=== PATIENT | female | born 1990 | race African-American/Black ===

== ENCOUNTER 2016-07-15 18:44 | Emergency (ER) | payer BC ==
[~2016-07-15] VITALS: Ht 165.1 cm; Wt 100.0 kg
[~2016-07-15 18:44] MED LIST: AMOXICILLIN500 MG PO; AZITHROMYCIN500 MG PO; BACTRIM DS1 TAB PO; BACTROBAN2 % EX; BACTROBAN2 % NAS; CEPHALEXIN500 MG OR; CIPRO500 MG PO; DIFLUCAN150 MG PO; DOXYCYCL HYC100 MG PO; ERYTHROMYCIN250 MG PO; FIORICET PO; FLAGYL500 MG PO; IBUPROFEN600 MG PO; IRON 100 PLUS PO; KETOROLAC10 MG PO; LASIX 20 MG20 MG/TAB PO; LOPRESSOR 550 MG/TAB PO; MACROBID100 MG PO; MOTRIN800 MG PO; NAPROSYN500 MG PO; NO; NO HOME MEDS; NYSTAT/TRIA2 EX; ONDANSETRON4 MG PO; PRE-NATAL PO; PYRIDIUM200 MG PO; ROCEPHIN 2250 MG/VIA IM; TYLENOL 500MG TAB PO; ZITHROMAX500 MG OR
[2016-07-15 19:26] LABS: HEMATOCRIT 34.8 % (37.0-47.0); HEMOGLOBIN 10.8 g/dl (12.0-16.0); IMMATURE GRANULOCYTES 0.2 % (0.0-1.0); MEAN CORPUSCULAR HGB 22.4 pG CALC (26.0-32.0); NEUT# 2.29 thou/uL (2.00-7.15); RED BLOOD COUNT 4.83 mill/uL (4.20-5.60); RED CELL DISTRI WIDTH 17.1 % (11.5-15.5)
[2016-07-15 19:41] LABS: ALBUMIN 4.3 g/dL (3.2-5.0); ALKALINE PHOSPHATASE 79 u/l (38-126); ANION GAP 13 (6-22 (CALC)); BILIRUBIN, TOTAL 0.4 mg/dL (0.0-1.4); BUN 13 mg/dL (7-17); BUN/CREATININE RATIO 19 (12-20 (CALC)); CALCIUM 9.2 mg/dL (8.4-10.2); CARBON DIOXIDE 25 mmol/l (22-30); CHLORIDE 105 mmol/l (95-108); CREATININE 0.7 mg/dL (0.5-1.0); ETHYL ALCOHOL 0 mg/dl (0-30); GFR > 60 ML/MIN (>=60 (CALC)); GFR FOR AFR.AMER. > 60 ML/MIN (>=60 (CALC)); GLUCOSE 106 mg/dL (65-105); POTASSIUM 3.3 mmol/l (3.5-5.1); SGOT/AST 29 u/l (14-36); SGPT/ALT 30 u/l (9-52); SODIUM 139 mmol/l (137-146); TOTAL PROTEIN 8.9 g/dL (6.3-8.2)
[2016-07-15 19:51] LABS: MYOGLOBIN 19 ng/mL (0 - 62)
[2016-07-15 20:42] LABS: URINE BILIRUBIN - DIPSTICK NEGATIVE (NEGATIVE); URINE BLOOD DIPSTICK TRACE-INTACT (NEGATIVE); URINE CLARITY SLIGHT CLOUDY; URINE COLOR YELLOW; URINE GLUCOSE - DIPSTICK NEGATIVE (NEGATIVE); URINE KETONE NEGATIVE (NEGATIVE); URINE NITRITE - DIPSTICK NEGATIVE (Negative); URINE PROTEIN - DIPSTICK NEGATIVE (NEG-TRACE); URINE SPECIFIC GRAVITY >=1.030; URINE UROBILINOGEN - DIPSTICK 0.2 E.U./dL (0.2)
[2016-07-15 20:44] LABS: URINE LEUK ESTERASE SMALL (NEGATIVE)
[2016-07-15 20:45] LABS: BARBITURATES NEGATIVE (NEGATIVE); COCAINE NEGATIVE (NEGATIVE); METHADONE NEGATIVE (NEGATIVE); OXCYCODONE NEGATIVE (NEGATIVE); TETRAHYDROCANNABIONOL NEGATIVE (NEGATIVE); TRICYLIC ANTIDEPRESSANTS NEGATIVE (NEGATIVE)
[2016-07-15 20:51] LABS: URINE SQUAMOUS EPITHELIAL CELL MANY EPI/hpf (0-FEW)
[2016-07-15] MEDS ORDERED: CEPHALEXIN500 MG PO (21:43)
[2016-07-15 22:11] VITALS: BP 102/63
== END 2016-07-15 22:17 | disposition home or self-care (01) | DRG 101 ==
LOC: ED 18:44
PROVIDERS: Emergency Medicine
DX: G40.909 Epilepsy, unspecified, not intractable, without status epilepticus (principal); N39.0 Urinary tract infection, site not specified

== ENCOUNTER 2016-08-15 14:31 | Emergency (ER) | payer BC ==
[~2016-08-15] VITALS: Ht 165.1 cm; Wt 95.0 kg
[~2016-08-15 14:31] MED LIST changes: +CEPHALEXIN500 MG PO
[2016-08-15] MEDS ORDERED: MOTRIN800 MG PO (14:45)
[2016-08-15 15:55] VITALS: BP 116/68
== END 2016-08-15 15:55 | disposition home or self-care (01) | DRG 558 ==
LOC: ED 14:31
DX: M77.51 Other enthesopathy of right foot and ankle (principal); M25.572 Pain in left ankle and joints of left foot

== ENCOUNTER 2017-05-28 17:40 | Emergency (ER) | payer SELFPAY ==
[~2017-05-28] VITALS: Ht 165.1 cm; Wt 95.0 kg
[2017-05-28 18:47] LABS: URINE BILIRUBIN - DIPSTICK NEGATIVE (NEGATIVE); URINE BLOOD DIPSTICK SMALL (NEGATIVE); URINE COLOR YELLOW; URINE GLUCOSE - DIPSTICK NEGATIVE (NEGATIVE); URINE KETONE TRACE mg/dL (NEGATIVE); URINE LEUK ESTERASE NEGATIVE (NEGATIVE); URINE NITRITE - DIPSTICK NEGATIVE (Negative); URINE PROTEIN - DIPSTICK NEGATIVE (NEG-TRACE); URINE SPECIFIC GRAVITY 1.025; URINE UROBILINOGEN - DIPSTICK 0.2 E.U./dL (0.2)
[2017-05-28 18:52] LABS: URINE CLARITY CLEAR
[2017-05-28 18:59] LABS: URINE SQUAMOUS EPITHELIAL CELL FEW EPI/hpf (0-FEW)
[2017-05-28 20:12] VITALS: BP 127/75
== END 2017-05-28 20:25 | disposition home or self-care (01) | DRG 759 ==
LOC: ED 17:40
PROVIDERS: Family Medicine
DX: N76.0 Acute vaginitis (principal)

== ENCOUNTER 2017-05-29 20:26 | Emergency (ER) | payer SELFPAY ==
[~2017-05-29] VITALS: Ht 165.1 cm; Wt 95.0 kg
[2017-05-29 21:43] LABS: HEMATOCRIT 32.8 % (37.0-47.0); HEMOGLOBIN 10.1 g/dl (12.0-16.0); IMMATURE GRANULOCYTES 0.2 % (0.0-1.0); MEAN CORPUSCULAR HGB 23.7 pG CALC (26.0-32.0); MEAN CORPUSCULAR HGB CONC 30.8 g/L CALC (32.0-36.0); NEUT# 2.59 thou/uL (2.00-7.15); RED BLOOD COUNT 4.27 mill/uL (4.20-5.60); RED CELL DISTRI WIDTH 14.6 % (11.5-15.5)
[2017-05-29 21:44] LABS: MEAN CELL VOLUME 76.8 fL CALC (80.0-100.0)
[2017-05-29 21:49] LABS: URINE BILIRUBIN - DIPSTICK NEGATIVE (NEGATIVE); URINE BLOOD DIPSTICK NEGATIVE (NEGATIVE); URINE COLOR YELLOW; URINE GLUCOSE - DIPSTICK NEGATIVE (NEGATIVE); URINE KETONE NEGATIVE (NEGATIVE); URINE LEUK ESTERASE NEGATIVE (NEGATIVE); URINE NITRITE - DIPSTICK NEGATIVE (Negative); URINE PH 7.5 (4.5-8.0); URINE PROTEIN - DIPSTICK TRACE mg/dL (NEG-TRACE); URINE UROBILINOGEN - DIPSTICK 0.2 E.U./dL (0.2)
[2017-05-29 21:51] LABS: URINE CLARITY CLEAR
[2017-05-29 21:53] LABS: BARBITURATES NEGATIVE (NEGATIVE); COCAINE NEGATIVE (NEGATIVE); METHADONE NEGATIVE (NEGATIVE); OXCYCODONE NEGATIVE (NEGATIVE); TETRAHYDROCANNABIONOL NEGATIVE (NEGATIVE); TRICYLIC ANTIDEPRESSANTS NEGATIVE (NEGATIVE)
[2017-05-29 21:56] LABS: ALBUMIN 3.8 g/dL (3.2-5.0); ALKALINE PHOSPHATASE 78 u/l (38-126); ANION GAP 16 (6-22 (CALC)); BILIRUBIN, TOTAL 0.2 mg/dL (0.0-1.4); BUN 11 mg/dL (7-17); BUN/CREATININE RATIO 15 (12-20 (CALC)); CARBON DIOXIDE 27 mmol/l (22-30); CHLORIDE 104 mmol/l (95-108); CREATININE 0.7 mg/dL (0.5-1.0); GFR > 60 ML/MIN (>=60 (CALC)); GFR FOR AFR.AMER. > 60 ML/MIN (>=60 (CALC)); POTASSIUM 3.8 mmol/l (3.5-5.1); SGOT/AST 19 u/l (14-36); SGPT/ALT 29 u/l (9-52); SODIUM 143 mmol/l (137-146); TOTAL PROTEIN 7.7 g/dL (6.3-8.2)
[2017-05-29 23:19] VITALS: BP 122/64
== END 2017-05-29 23:18 | disposition home or self-care (01) | DRG 101 ==
LOC: ED 20:26
PROVIDERS: Emergency Medicine
DX: R56.9 Unspecified convulsions (principal); R51 Headache; Z91.14 Patient's other noncompliance with medication regimen; Y93.G3 Activity, cooking and baking; Y92.000 Kitchen of unspecified non-institutional (private) residence as the place of occurrence of the external cause

== ENCOUNTER 2017-06-04 23:02 | Emergency (ER) | payer SELFPAY ==
[~2017-06-04] VITALS: Ht 165.1 cm; Wt 100.0 kg
[2017-06-04 23:36] LABS: HEMATOCRIT 36.1 % (37.0-47.0); HEMOGLOBIN 11.2 g/dl (12.0-16.0); IMMATURE GRANULOCYTES 0.3 % (0.0-1.0); MEAN CORPUSCULAR HGB 23.6 pG CALC (26.0-32.0); NEUT# 3.04 thou/uL (2.00-7.15); RED BLOOD COUNT 4.75 mill/uL (4.20-5.60); RED CELL DISTRI WIDTH 14.4 % (11.5-15.5)
[2017-06-04 23:48] LABS: ALBUMIN 4.1 g/dL (3.2-5.0); ALKALINE PHOSPHATASE 88 u/l (38-126); ANION GAP 17 (6-22 (CALC)); BILIRUBIN, TOTAL 0.3 mg/dL (0.0-1.4); BUN 14 mg/dL (7-17); BUN/CREATININE RATIO 16 (12-20 (CALC)); CARBON DIOXIDE 24 mmol/l (22-30); CHLORIDE 105 mmol/l (95-108); CREATININE 0.9 mg/dL (0.5-1.0); GFR > 60 ML/MIN (>=60 (CALC)); GFR FOR AFR.AMER. > 60 ML/MIN (>=60 (CALC)); SGOT/AST 18 u/l (14-36); SGPT/ALT 28 u/l (9-52); SODIUM 142 mmol/l (137-146); TOTAL PROTEIN 8.4 g/dL (6.3-8.2)
[2017-06-05 00:50] LABS: URINE BILIRUBIN - DIPSTICK NEGATIVE (NEGATIVE); URINE BLOOD DIPSTICK TRACE-INTACT (NEGATIVE); URINE COLOR YELLOW; URINE GLUCOSE - DIPSTICK NEGATIVE (NEGATIVE); URINE KETONE NEGATIVE (NEGATIVE); URINE NITRITE - DIPSTICK NEGATIVE (Negative); URINE PROTEIN - DIPSTICK NEGATIVE (NEG-TRACE); URINE UROBILINOGEN - DIPSTICK 0.2 E.U./dL (0.2)
[2017-06-05 00:52] LABS: BARBITURATES NEGATIVE (NEGATIVE); COCAINE NEGATIVE (NEGATIVE); METHADONE NEGATIVE (NEGATIVE); OXCYCODONE NEGATIVE (NEGATIVE); TETRAHYDROCANNABIONOL NEGATIVE (NEGATIVE); TRICYLIC ANTIDEPRESSANTS NEGATIVE (NEGATIVE); URINE CLARITY HAZY; URINE LEUK ESTERASE SMALL (NEGATIVE)
[2017-06-05] MEDS ORDERED: AMOXICILLIN500 MG PO (00:57)
[2017-06-05 01:02] LABS: URINE BACTERIA FEW hpf; URINE EPITHELIAL CELLS FEW EPI/hpf (0-FEW); URINE RBC 0-2 RBC/hpf (0-5)
[2017-06-05 01:05] VITALS: BP 113/57
== END 2017-06-05 01:05 | disposition home or self-care (01) | DRG 101 ==
LOC: ED 23:02
PROVIDERS: Emergency Medicine
DX: G40.909 Epilepsy, unspecified, not intractable, without status epilepticus (principal); J45.909 Unspecified asthma, uncomplicated; N39.0 Urinary tract infection, site not specified
CPT/HCPCS: J1953

== ENCOUNTER 2017-06-12 20:50 | Emergency (ER) | payer OTHER ==
[~2017-06-12] VITALS: Ht 165.1 cm; Wt 100.0 kg
[2017-06-12] MEDS ORDERED: BRIVIACT25 MG PO (21:16)
[2017-06-12] MEDS ORDERED: AMITRIPTYLIN25 MG PO (21:16)
[2017-06-12 21:54] LABS: HEMATOCRIT 37.3 % (37.0-47.0); HEMOGLOBIN 11.8 g/dl (12.0-16.0); IMMATURE GRANULOCYTES 0.1 % (0.0-1.0); MEAN CELL VOLUME 74.3 fL CALC (80.0-100.0); MEAN CORPUSCULAR HGB 23.5 pG CALC (26.0-32.0); MEAN CORPUSCULAR HGB CONC 31.6 g/L CALC (32.0-36.0); NEUT# 3.35 thou/uL (2.00-7.15); RED BLOOD COUNT 5.02 mill/uL (4.20-5.60); RED CELL DISTRI WIDTH 14.2 % (11.5-15.5)
[2017-06-12 22:08] LABS: ANION GAP 22 (6-22 (CALC)); BUN 12 mg/dL (7-17); BUN/CREATININE RATIO 15 (12-20 (CALC)); CARBON DIOXIDE 21 mmol/l (22-30); CHLORIDE 102 mmol/l (95-108); CREATININE 0.8 mg/dL (0.5-1.0); GFR > 60 ML/MIN (>=60 (CALC)); GFR FOR AFR.AMER. > 60 ML/MIN (>=60 (CALC)); POTASSIUM 3.2 mmol/l (3.5-5.1); SODIUM 142 mmol/l (137-146)
[2017-06-12] MEDS ORDERED: POTASSIUM CHLO20 ME1 PO (23:37)
[2017-06-12 23:39] VITALS: BP 107/64
== END 2017-06-13 00:12 | disposition home or self-care (01) | DRG 101 ==
LOC: ED 20:50
PROVIDERS: Family Medicine
DX: R56.9 Unspecified convulsions (principal); R51 Headache
CPT/HCPCS: J2060

== ENCOUNTER 2017-09-03 14:43 | Emergency (ER) | payer SELFPAY ==
[~2017-09-03] VITALS: Ht 165.1 cm; Wt 100.0 kg
[~2017-09-03 14:43] MED LIST changes: +AMITRIPTYLIN25 MG PO; +BRIVIACT25 MG PO; +POTASSIUM CHLO20 ME1 PO
[2017-09-03 15:24] VITALS: BP 124/59
== END 2017-09-03 15:15 | disposition left against medical advice (07) | DRG 93 ==
LOC: ED 14:43
DX: R25.9 Unspecified abnormal involuntary movements (principal); G40.909 Epilepsy, unspecified, not intractable, without status epilepticus; J45.909 Unspecified asthma, uncomplicated; Z91.14 Patient's other noncompliance with medication regimen; Z91.19 Patient's noncompliance with other medical treatment and regimen

== ENCOUNTER 2018-03-17 22:41 | Emergency (ER) | payer SELFPAY ==
[~2018-03-17] VITALS: Ht 165.1 cm; Wt 97.0 kg
[2018-03-17 23:04] LABS: URINE BILIRUBIN - DIPSTICK NEGATIVE (NEGATIVE); URINE BLOOD DIPSTICK SMALL (NEGATIVE); URINE COLOR YELLOW; URINE GLUCOSE - DIPSTICK NEGATIVE (NEGATIVE); URINE KETONE 15 mg/dL (NEGATIVE); URINE LEUK ESTERASE SMALL (Negative); URINE NITRITE - DIPSTICK NEGATIVE (Negative); URINE PROTEIN - DIPSTICK TRACE mg/dL (NEG-TRACE)
[2018-03-17 23:09] LABS: URINE CLARITY CLOUDY
[2018-03-17 23:15] LABS: URINE RBC 0-2 RBC/hpf (0-5)
[2018-03-17 23:16] LABS: URINE BACTERIA MODERATE hpf; URINE MUCUS FEW hpf (NONE-FEW); URINE SQUAMOUS EPITHELIAL CELL MANY EPI/hpf (0-FEW)
[2018-03-17 23:29] LABS: HEMATOCRIT 35.3 % (37.0-47.0); HEMOGLOBIN 11.1 g/dl (12.0-16.0); IMMATURE GRANULOCYTES 0.1 % (0.0-5.0); MEAN CORPUSCULAR HGB 23.3 pG CALC (26.0-32.0); MEAN CORPUSCULAR HGB CONC 31.4 g/L CALC (32.0-36.0); NEUT# 4.15 thou/uL (2.00-7.15); RED BLOOD COUNT 4.77 mill/uL (4.20-5.60); RED CELL DISTRI WIDTH 15.4 % (11.5-15.5)
[2018-03-17 23:41] LABS: ALBUMIN 4.5 g/dL (3.2-5.0); ALKALINE PHOSPHATASE 63 u/l (38-126); ANION GAP 16 (6-22 (CALC)); BILIRUBIN, TOTAL 0.4 mg/dL (0.0-1.4); BUN 12 mg/dL (7-17); BUN/CREATININE RATIO 18 (12-20 (CALC)); CARBON DIOXIDE 24 mmol/l (22-30); CHLORIDE 103 mmol/l (95-108); CREATININE 0.7 mg/dL (0.5-1.0); GFR > 60 ML/MIN (>=60 (CALC)); GFR FOR AFR.AMER. > 60 ML/MIN (>=60 (CALC)); POTASSIUM 3.6 mmol/l (3.5-5.1); SGOT/AST 19 u/l (14-36); SODIUM 139 mmol/l (137-146); TOTAL PROTEIN 8.4 g/dL (6.3-8.2)
[2018-03-17] MEDS ORDERED: CEPHALEXIN500 M1 PO (23:41)
[2018-03-17 23:59] LABS: BETA-HCG, QUANT(RESULT NUMBER) 8575 mIU/mL
[2018-03-18] VITALS: BP 129/72
== END 2018-03-18 | disposition home or self-care (01) | DRG 833 ==
LOC: ED 22:41
PROVIDERS: Emergency Medicine
DX: O23.40 Unspecified infection of urinary tract in pregnancy, unspecified trimester (principal); Z3A.00 Weeks of gestation of pregnancy not specified

== ENCOUNTER 2018-06-09 17:37 | Emergency (ER) | payer OTHER ==
[~2018-06-09] VITALS: Ht 165.1 cm; Wt 98.6 kg
[~2018-06-09 17:37] MED LIST changes: +CEPHALEXIN500 M1 PO
[2018-06-09 17:40] VITALS: BP 131/77
[2018-06-09 18:19] LABS: HEMATOCRIT 31.6 % (37.0-47.0); HEMOGLOBIN 9.8 g/dl (12.0-16.0); IMMATURE GRANULOCYTES 0.4 % (0.0-5.0); MEAN CORPUSCULAR HGB 23.6 pG CALC (26.0-32.0); NEUT# 5.07 thou/uL (2.00-7.15); RED BLOOD COUNT 4.16 mill/uL (4.20-5.60); RED CELL DISTRI WIDTH 14.8 % (11.5-15.5)
[2018-06-09 18:20] LABS: URINE BILIRUBIN - DIPSTICK NEGATIVE (NEGATIVE); URINE BLOOD DIPSTICK NEGATIVE (NEGATIVE); URINE COLOR YELLOW; URINE GLUCOSE - DIPSTICK NEGATIVE (NEGATIVE); URINE KETONE NEGATIVE (NEGATIVE); URINE LEUK ESTERASE TRACE (NEGATIVE); URINE NITRITE - DIPSTICK NEGATIVE (Negative); URINE PROTEIN - DIPSTICK NEGATIVE (NEG-TRACE)
[2018-06-09 18:32] LABS: ALBUMIN 3.8 g/dL (3.2-5.0); ALKALINE PHOSPHATASE 79 u/l (38-126); ANION GAP 14 (6-22 (CALC)); BILIRUBIN, TOTAL 0.2 mg/dL (0.0-1.4); BUN 7 mg/dL (7-17); BUN/CREATININE RATIO 15 (12-20 (CALC)); CARBON DIOXIDE 24 mmol/l (22-30); CHLORIDE 104 mmol/l (95-108); CREATININE 0.5 mg/dL (0.5-1.0); GFR > 60 ML/MIN (>=60 (CALC)); GFR FOR AFR.AMER. > 60 ML/MIN (>=60 (CALC)); POTASSIUM 3.5 mmol/l (3.5-5.1); SGOT/AST 18 u/l (14-36); SODIUM 138 mmol/l (137-146); TOTAL PROTEIN 7.8 g/dL (6.3-8.2)
[2018-06-09 18:47] LABS: BETA-HCG, QUANT(RESULT NUMBER) 11134 mIU/mL
== END 2018-06-09 19:28 | disposition home or self-care (01) ==
LOC: ED 17:37
DX: O26.892 Other specified pregnancy related conditions, second trimester (principal); Z3A.18 18 weeks gestation of pregnancy; R10.30 Lower abdominal pain, unspecified

== ENCOUNTER 2018-06-20 21:04 | Emergency (ER) | payer OTHER ==
[~2018-06-20] VITALS: Ht 165.1 cm; Wt 101.4 kg
[2018-06-20] MEDS ORDERED: AMOXICILLIN500 MG PO (23:48)
[2018-06-21 00:48] VITALS: BP 139/75
== END 2018-06-21 00:46 | disposition home or self-care (01) ==
LOC: ED 21:04
DX: O99.512 Diseases of the respiratory system complicating pregnancy, second trimester (principal); J06.9 Acute upper respiratory infection, unspecified; H66.90 Otitis media, unspecified, unspecified ear; Z3A.19 19 weeks gestation of pregnancy

== ENCOUNTER 2019-11-21 10:02 | Emergency (ER) | payer OTHER ==
[~2019-11-21] VITALS: Ht 165.1 cm; Wt 81.8 kg
[2019-11-21 12:22] LABS: HEMATOCRIT 33.6 % (37.0-47.0); HEMOGLOBIN 9.9 g/dl (12.0-16.0); IMMATURE GRANULOCYTES 0.2 % (0.0-5.0); MEAN CELL VOLUME 74.3 fL CALC (80.0-100.0); MEAN CORPUSCULAR HGB 21.9 pG CALC (26.0-32.0); MEAN CORPUSCULAR HGB CONC 29.5 g/dL CAL (32.0-36.0); NEUT# 3.22 thou/uL (2.00-7.15); RED BLOOD COUNT 4.52 mill/uL (4.20-5.60)
[2019-11-21 12:36] VITALS: BP 113/60
[2019-11-21 12:44] LABS: ANION GAP 9 (6-22 (CALC)); BUN 10 mg/dL (7-17); BUN/CREATININE RATIO 15 (12-20 (CALC)); CHLORIDE 103 mmol/l (95-108); CREATININE 0.7 mg/dL (0.5-1.0); GFR > 60 ML/MIN (>=60 (CALC)); GFR FOR AFR.AMER. > 60 ML/MIN (>=60 (CALC)); POTASSIUM 3.7 mmol/l (3.5-5.1); SODIUM 137 mmol/l (137-146)
[2019-11-21 12:50] LABS: CARBON DIOXIDE 29 mmol/l (22-30)
== END 2019-11-21 12:45 ==
LOC: ED 10:02
PROVIDERS: Family Medicine
DX: T79.A22A Traumatic compartment syndrome of left lower extremity, initial encounter (principal); W22.09XA Striking against other stationary object, initial encounter; Y93.I9 Activity, other involving external motion

== ENCOUNTER 2019-11-23 13:22 | Emergency (ER) | payer OTHER ==
[~2019-11-23] VITALS: Ht 165.1 cm; Wt 81.8 kg
[2019-11-23 14:24] VITALS: BP 141/81
== END 2019-11-23 14:31 | disposition home or self-care (01) ==
LOC: ED 13:22
DX: M79.662 Pain in left lower leg (principal); M79.89 Other specified soft tissue disorders; W22.09XA Striking against other stationary object, initial encounter; Y93.I9 Activity, other involving external motion

== ENCOUNTER 2020-04-13 11:09 | Emergency (ER) | payer OTHER ==
[~2020-04-13] VITALS: Ht 165.1 cm; Wt 90.9 kg
[2020-04-13 11:55] LABS: HEMATOCRIT 34.6 % (37.0-47.0); HEMOGLOBIN 10.5 g/dl (12.0-16.0); MEAN CELL VOLUME 73.5 fL CALC (80.0-100.0); MEAN CORPUSCULAR HGB 22.3 pG CALC (26.0-32.0); MEAN CORPUSCULAR HGB CONC 30.3 g/dL CAL (32.0-36.0); NEUT# 0.85 thou/uL (2.00-7.15); RED BLOOD COUNT 4.71 mill/uL (4.20-5.60); RED CELL DISTRI WIDTH 16.3 % (11.5-15.5)
[2020-04-13 12:04] LABS: URINE BILIRUBIN - DIPSTICK NEGATIVE (NEGATIVE); URINE BLOOD DIPSTICK LARGE (NEGATIVE); URINE COLOR YELLOW; URINE GLUCOSE - DIPSTICK NEGATIVE (NEGATIVE); URINE KETONE NEGATIVE (NEGATIVE); URINE LEUK ESTERASE NEGATIVE (NEGATIVE); URINE NITRITE - DIPSTICK NEGATIVE (Negative); URINE PROTEIN - DIPSTICK NEGATIVE (NEG-TRACE); URINE UROBILINOGEN - DIPSTICK 0.2 E.U./dL (0.2)
[2020-04-13 12:13] LABS: ALBUMIN 4.2 g/dL (3.2-5.0); ALKALINE PHOSPHATASE 77 u/l (38-126); BUN 9 mg/dL (7-17); BUN/CREATININE RATIO 13 (12-20 (CALC)); CHLORIDE 106 mmol/l (95-108); CREATININE 0.7 mg/dL (0.5-1.0); GFR > 60 ML/MIN (>=60 (CALC)); GFR FOR AFR.AMER. > 60 ML/MIN (>=60 (CALC)); POTASSIUM 3.4 mmol/l (3.5-5.1); SGOT/AST 21 u/l (14-36); SODIUM 138 mmol/l (137-146); TOTAL PROTEIN 8.3 g/dL (6.3-8.2)
[2020-04-13 12:17] LABS: ANION GAP 13 (6-22 (CALC)); BILIRUBIN, TOTAL 0.3 mg/dL (0.0-1.4); CARBON DIOXIDE 22 mmol/l (22-30)
[2020-04-13 12:27] LABS: URINE RBC 25-50 RBC/hpf (0-5); URINE WBC 0-2 WBC/hpf (0-5)
[2020-04-13 12:28] LABS: URINE EPITHELIAL CELLS FEW EPI/hpf (0-FEW)
[2020-04-13 14:27] VITALS: BP 128/82
== END 2020-04-13 14:27 | disposition home or self-care (01) ==
LOC: ED 11:09
PROVIDERS: Emergency Medicine
DX: N93.8 Other specified abnormal uterine and vaginal bleeding (principal); J45.909 Unspecified asthma, uncomplicated

== ENCOUNTER 2020-07-27 11:46 | Emergency (ER) | payer OTHER ==
[~2020-07-27] VITALS: Ht 165.1 cm; Wt 89.6 kg
[2020-07-27] MEDS ORDERED: TORADOL PO (13:49)
[2020-07-27] MEDS ORDERED: REGLAN10 MG PO (13:49)
[2020-07-27] MEDS ORDERED: BENADRYL25 M1 PO (13:49)
[2020-07-27 13:52] VITALS: BP 122/76
== END 2020-07-27 14:11 | disposition home or self-care (01) ==
LOC: ED 11:46
DX: G43.909 Migraine, unspecified, not intractable, without status migrainosus (principal); F32.9 Major depressive disorder, single episode, unspecified; J45.909 Unspecified asthma, uncomplicated

== ENCOUNTER 2021-06-19 18:12 | Emergency (ER) | payer OTHER ==
[~2021-06-19 18:12] MED LIST changes: +BENADRYL25 M1 PO; +REGLAN10 MG PO; +TORADOL PO
== END 2021-06-19 18:41 | disposition left against medical advice (07) ==
LOC: ED 18:12
DX: G40.909 Epilepsy, unspecified, not intractable, without status epilepticus (principal); J45.909 Unspecified asthma, uncomplicated; Z91.19 Patient's noncompliance with other medical treatment and regimen

== ENCOUNTER 2021-11-23 20:20 | Emergency (ER) | payer OTHER ==
[~2021-11-23] VITALS: Ht 165.1 cm; Wt 101.0 kg
[2021-11-23 20:28] VITALS: BP 152/98
[2021-11-23 20:30] VITALS: BP 152/92
[2021-11-23 20:45] VITALS: BP 133/94
[2021-11-23 21:00] VITALS: BP 135/81
[2021-11-23] MEDS ORDERED: VOLTAREN75 MG PO (21:44)
[2021-11-23 21:47] VITALS: BP 135/81
== END 2021-11-23 22:50 | disposition home or self-care (01) ==
LOC: ED 20:20
DX: S83.92XA Sprain of unspecified site of left knee, initial encounter (principal); J45.909 Unspecified asthma, uncomplicated; X50.0XXA Overexertion from strenuous movement or load, initial encounter

== ENCOUNTER 2021-12-13 18:21 | Emergency (ER) | payer OTHER ==
[2021-12-13] VITALS (11 sets, daily range): BP systolic 119–178; BP diastolic 68–98
[~2021-12-13] VITALS: Ht 165.1 cm; Wt 100.0 kg
[~2021-12-13 18:21] MED LIST changes: +VOLTAREN75 MG PO
[2021-12-13 19:01] LABS: HEMOGLOBIN 11.9 g/dl (12.0-16.0); IMMATURE GRANULOCYTES 0.1 % (0.0-5.0); MEAN CORPUSCULAR HGB 22.9 pG CALC (26.0-32.0); MEAN CORPUSCULAR HGB CONC 30.5 g/dL CAL (32.0-36.0); NEUT# 4.05 thou/uL (2.00-7.15); RED BLOOD COUNT 5.2 mill/uL (4.20-5.60); RED CELL DISTRI WIDTH 14.9 % (11.5-15.5)
[2021-12-13 19:05] LABS: ALBUMIN 4.9 g/dL (3.2-5.0); ALKALINE PHOSPHATASE 100 u/l (38-126); ANION GAP 17 (6-22 (CALC)); BILIRUBIN, TOTAL 0.2 mg/dL (0.0-1.4); BUN 14 mg/dL (7-17); BUN/CREATININE RATIO 19 (12-20 (CALC)); CARBON DIOXIDE 22 mmol/l (22-30); CHLORIDE 103 mmol/l (95-108); CREATININE 0.7 mg/dL (0.5-1.0); GFR FOR AFR.AMER. > 60 ML/MIN (>=60 (CALC)); GFR OTHER RACES > 60 ML/MIN (>=60 (CALC)); POTASSIUM 3.4 mmol/l (3.5-5.1); SGOT/AST 26 u/l (14-36); SODIUM 139 mmol/l (137-146); TOTAL PROTEIN 9.8 g/dL (6.3-8.2)
[2021-12-13 19:07] LABS: PROTHROMBIN TIME 10.2 SECONDS (9.0-12.5)
[2021-12-13 21:02] LABS: URINE BILIRUBIN - DIPSTICK NEGATIVE (NEGATIVE); URINE BLOOD DIPSTICK TRACE-INTACT (NEGATIVE); URINE COLOR YELLOW; URINE GLUCOSE - DIPSTICK NEGATIVE (NEGATIVE); URINE KETONE NEGATIVE (NEGATIVE); URINE PROTEIN - DIPSTICK NEGATIVE (NEG-TRACE); URINE SPECIFIC GRAVITY 1.015; URINE UROBILINOGEN - DIPSTICK 0.2 E.U./dL (0.2)
[2021-12-13 21:05] LABS: URINE LEUK ESTERASE SMALL (NEGATIVE); URINE NITRITE - DIPSTICK NEGATIVE (Negative)
[2021-12-13 21:09] LABS: URINE RBC 0-2 RBC/hpf (0-5); URINE SQUAMOUS EPITHELIAL CELL FEW EPI/hpf (0-FEW)
[2021-12-13] MEDS ORDERED: KEFLEX500 MG PO (21:30)
== END 2021-12-13 21:50 | disposition home or self-care (01) ==
LOC: ED 18:21
PROVIDERS: Nurse Practitioner
DX: E16.2 Hypoglycemia, unspecified (principal); N39.0 Urinary tract infection, site not specified; F41.8 Other specified anxiety disorders; I10 Essential (primary) hypertension; J45.909 Unspecified asthma, uncomplicated
CPT/HCPCS: J3101

== ENCOUNTER 2023-03-13 18:14 | Emergency (ER) | payer SELFPAY ==
[~2023-03-13] VITALS: Ht 165.1 cm; Wt 99.7 kg
[~2023-03-13 18:14] MED LIST changes: +KEFLEX500 MG PO
[2023-03-13] MEDS ORDERED: MOTRIN800 MG PO (20:47)
[2023-03-13] MEDS ORDERED: AMOXICILLIN500 M2 PO (20:47)
[2023-03-13 21:07] VITALS: BP 125/89
== END 2023-03-13 21:11 | disposition home or self-care (01) | DRG 159 ==
LOC: ED 18:14
DX: K02.9 Dental caries, unspecified (principal); J45.909 Unspecified asthma, uncomplicated

== ENCOUNTER 2023-03-14 00:21 | Emergency (ER) | payer SELFPAY ==
[~2023-03-14] VITALS: Ht 165.1 cm; Wt 99.0 kg
[~2023-03-14 00:21] MED LIST changes: +AMOXICILLIN500 M2 PO
[2023-03-14 01:22] VITALS: BP 122/88
== END 2023-03-14 01:22 | disposition home or self-care (01) | DRG 159 ==
LOC: ED 00:21
PROC: 3E0T3BZ Introduction of Anesthetic Agent into Peripheral Nerves and Plexi, Percutaneous Approach (ICD-10-PCS; principal; 2023-03-14)
DX: K02.9 Dental caries, unspecified (principal)

== ENCOUNTER 2024-01-28 20:30 | Emergency (ER) | payer SELFPAY ==
[~2024-01-28] VITALS: Ht 165.1 cm; Wt 100.0 kg
[~2024-01-28 20:30] MED LIST changes: +NITROFURANTN100 M2 PO
[2024-01-28] MEDS ORDERED: LORazepam 2 MG/ML IV ONE (20:55)
[2024-01-28] MEDS ORDERED: ALBUTEROL SULFATE 2.5 MG VIAL NEB ONE (20:55)
[2024-01-28 21:20] LABS: URINE BILIRUBIN - DIPSTICK Negative (NEGATIVE); URINE BLOOD DIPSTICK Trace-intact (NEGATIVE); URINE CLARITY Clear; URINE GLUCOSE - DIPSTICK Negative (NEGATIVE); URINE KETONE Negative (NEGATIVE); URINE LEUK ESTERASE Negative (Negative); URINE NITRITE - DIPSTICK Negative (Negative); URINE PROTEIN - DIPSTICK 30 mg/dL (NEG-TRACE); URINE SPECIFIC GRAVITY 1.025
[2024-01-28 21:22] LABS: BASO% 0.8 % (0-3); EOS% 3.6 % (0-8); HEMATOCRIT 35.7 % (37.0-47.0); HEMOGLOBIN 10.9 g/dl (12.0-16.0); IMMATURE GRANULOCYTES 0.2 % (0.0-5.0); LYMPH% 51.1 % (15-41); MEAN CELL VOLUME 75.8 fL CALC (80.0-100.0); MEAN CORPUSCULAR HGB 23.1 pG CALC (26.0-32.0); MEAN CORPUSCULAR HGB CONC 30.5 g/dL CAL (32.0-36.0); NEUT# 2.28 thou/uL (2.00-7.15); NEUT% 34.3 % (42-76); RED BLOOD COUNT 4.71 mill/uL (4.20-5.60); RED CELL DISTRI WIDTH 15.6 % (11.5-15.5); URINE COLOR Yellow
[2024-01-28 21:23] LABS: URINE SQUAMOUS EPITHELIAL CELL FEW EPI/hpf (0-FEW)
[2024-01-28 21:28] LABS: ALBUMIN 4.4 g/dL (3.2-5.0); ALKALINE PHOSPHATASE 77 u/l (38-126); ANION GAP 11 (6-22 (CALC)); BILIRUBIN, TOTAL 0.4 mg/dL (0.02-1.3); BUN 15 mg/dL (7-17); BUN/CREATININE RATIO 18 (12-20 (CALC)); CARBON DIOXIDE 25 mmol/l (22-30); CHLORIDE 106 mmol/l (95-108); CREATININE 0.9 mg/dL (0.5-1.0); ESTIMATED GFR 88 ML/MIN (>=90 (CALC)); LIPASE 83 u/l (23-300); POTASSIUM 3.6 mmol/l (3.5-5.1); SGOT/AST 28 u/l (14-36); SODIUM 139 mmol/l (137-146); TOTAL PROTEIN 8.6 g/dL (6.3-8.2)
[2024-01-29] MEDS ORDERED: DEXAMETHASON6 MG PO (00:10)
[2024-01-29] MEDS ORDERED: VENTOLIN HFA108 MCG PO (00:10)
[2024-01-29 00:31] VITALS: BP 112/66
== END 2024-01-29 00:32 | disposition home or self-care (01) | DRG 203 ==
LOC: ED 20:30
PROVIDERS: Emergency Medicine
DX: J45.909 Unspecified asthma, uncomplicated (principal)
CPT/HCPCS: J2060

== ENCOUNTER 2024-03-04 04:15 | Emergency (ER) | payer SELFPAY ==
[~2024-03-04] VITALS: Ht 165.1 cm; Wt 99.0 kg
[~2024-03-04 04:15] MED LIST changes: +DEXAMETHASON6 MG PO; +VENTOLIN HFA108 MCG PO
[2024-03-04 04:24] VITALS: BP 136/82
[2024-03-04] MEDS ORDERED: IBUPROFEN 800 MG/TAB PO ONE (05:05)
[2024-03-04 05:09] LABS: URINE BILIRUBIN - DIPSTICK Negative (NEGATIVE); URINE BLOOD DIPSTICK Moderate (NEGATIVE); URINE GLUCOSE - DIPSTICK Negative (NEGATIVE); URINE KETONE Negative (NEGATIVE); URINE NITRITE - DIPSTICK Negative (Negative); URINE PROTEIN - DIPSTICK Negative (NEG-TRACE); URINE UROBILINOGEN - DIPSTICK 0.2 E.U./dL (0.2)
[2024-03-04 05:32] LABS: URINE COLOR Yellow; URINE LEUK ESTERASE Negative (NEGATIVE)
[2024-03-04 05:34] LABS: URINE EPITHELIAL CELLS MODERATE EPI/hpf (0-FEW); URINE RBC >100 RBC/hpf (0-5)
[2024-03-04 05:35] LABS: URINE BACTERIA MODERATE hpf
[2024-03-04] MEDS ORDERED: Cefdinir 300 MG/CAP PO ONE (05:40)
[2024-03-04] MEDS ORDERED: OMNI-PAC300 MG PO (05:42)
[2024-03-04 05:55] VITALS: BP 130/78
== END 2024-03-04 05:55 | disposition home or self-care (01) | DRG 690 ==
LOC: ED 04:15
PROVIDERS: Family Medicine
DX: N39.0 Urinary tract infection, site not specified (principal); R51.9 Headache, unspecified; R05.9 Cough, unspecified

== ENCOUNTER 2024-03-27 20:43 | Emergency (ER) | payer SELFPAY ==
[~2024-03-27] VITALS: Ht 165.1 cm; Wt 95.0 kg
[~2024-03-27 20:43] MED LIST changes: +OMNI-PAC300 MG PO
[2024-03-27] MEDS ORDERED: BUTALBITAL-APAP-CAFFEINE 50-325-40 TAB PO ONE (21:00)
[2024-03-27] MEDS ORDERED: KETOROLAC TROMETHAMINE 30 MG/ML SDV IM ONE (21:00)
[2024-03-27] MEDS ORDERED: ONDANSETRON 4 MG/TAB ODT PO ONE (21:00)
[2024-03-27] MEDS ORDERED: FIORICET PO (21:13)
[2024-03-27 21:29] VITALS: BP 147/86
== END 2024-03-27 21:29 | disposition home or self-care (01) | DRG 103 ==
LOC: ED 20:43
DX: G43.909 Migraine, unspecified, not intractable, without status migrainosus (principal); Z72.0 Tobacco use

== ENCOUNTER 2024-05-03 12:55 | Emergency (ER) | payer SELFPAY ==
[~2024-05-03] VITALS: Ht 165.1 cm; Wt 102.0 kg
[2024-05-03 13:15] VITALS: BP 136/75
[2024-05-03] MEDS ORDERED: METOCLOPRAMIDE HCL 10 MG/2 ML SDV IV ONE (13:15)
[2024-05-03] MEDS ORDERED: SODIUM CHLORIDE 0.9% 1,000 ML IV ONE (13:15)
[2024-05-03] MEDS ORDERED: DiphenhydrAMINE HCL 50 MG/ML SDV IV ONE (13:15)
[2024-05-03] MEDS ORDERED: KETOROLAC TROMETHAMINE 15 MG/ML SDV IV ONE (13:15)
[2024-05-03 13:45] VITALS: BP 129/73
[2024-05-03 13:59] LABS: BASO% 0.8 % (0-3); EOS% 2.5 % (0-8); HEMATOCRIT 39.8 % (37.0-47.0); HEMOGLOBIN 12.1 g/dl (12.0-16.0); IMMATURE GRANULOCYTES 0.2 % (0.0-5.0); LYMPH% 42.2 % (15-41); MEAN CELL VOLUME 74.7 fL CALC (80.0-100.0); MEAN CORPUSCULAR HGB 22.7 pG CALC (26.0-32.0); MEAN CORPUSCULAR HGB CONC 30.4 g/dL CAL (32.0-36.0); MONO% 10.4 % (2-13); NEUT# 2.28 thou/uL (2.00-7.15); NEUT% 43.9 % (42-76); RED BLOOD COUNT 5.33 mill/uL (4.20-5.60); RED CELL DISTRI WIDTH 16.5 % (11.5-15.5)
[2024-05-03 14:08] LABS: ALBUMIN 4.5 g/dL (3.2-5.0); CREATININE 0.9 mg/dL (0.5-1.0); POTASSIUM 3.4 mmol/l (3.5-5.1); TOTAL PROTEIN 9.1 g/dL (6.3-8.2)
[2024-05-03 14:14] LABS: BILIRUBIN, TOTAL 0.6 mg/dL (0.02-1.3)
[2024-05-03 14:15] VITALS: BP 127/76
[2024-05-03 14:30] VITALS: BP 128/73
== END 2024-05-03 15:02 | disposition home or self-care (01) | DRG 103 ==
LOC: ED 12:55
PROVIDERS: Family Medicine
DX: G43.909 Migraine, unspecified, not intractable, without status migrainosus (principal); J45.909 Unspecified asthma, uncomplicated; Z72.0 Tobacco use; Z20.822 Contact with and (suspected) exposure to COVID-19
CPT/HCPCS: J1200; J1885; J2765